=== PATIENT | male | born 1975 | race Caucasian/White ===

== ENCOUNTER 2019-04-18 07:04 | Emergency (ER) | payer BC ==
[2019-04-18 07:20] VITALS: BP 170/100
--- NOTE | 2019-04-18 07:28 | UC ---
Respiratory Complaint HPI - HPI Summary HPI Summary: 43 yo with about a 4 week history of nasal congestion and sinus drainage. He has not had fever, does have some cough but no shortness of breath. Overall does not feel unwell, but is concerned that he is at risk of bronchitis. - History of Current Complaint Chief Complaint: UCRespiratory Stated Complaint: CONGESTION SINUS Time Seen by Provider: 04/18/19 07:20 Hx Obtained From: Patient Onset/Duration: Gradual Onset, Lasting Weeks Timing: Intermittent Episodes Severity Initially: Mild Severity Currently: Mild Pain Intensity: 0 Character: Cough: Nonproductive Aggravating Factors: Recumbent Position Alleviating Factors: OTC Meds Associated Signs And Symptoms: Positive: Nasal Congestion - Risk Factors Pulmonary Embolism Risk Factors: Negative Cardiac Risk Factors: Hypertension - hx of borderline hypertension Pseudomonas Risk Factors: Negative Tuberculosis Risk Factors: Negative - Allergies/Home Medications Allergies/Adverse Reactions: Allergies Allergy/AdvReac Type Severity Reaction Status Date / Time No Known Allergies Allergy Verified 04/18/19 07:14 Home Medications: Home Medications Allopurinol TAB* [Zyloprim 100 MG TAB*] 400 mg PO DAILY 04/18/19 [History Confirmed 04/18/19] PMH/Surg Hx/FS Hx/Imm Hx - Additional Past Medical History Additional PMH: Gout Previously Healthy: Yes Cardiovascular History: Hypertension - borderline - Surgical History Surgical History: Yes Surgery Procedure, Year, and Place: RIGHT HAND TENDON REPAIR 1996; - Family History Known Family History: Positive: Hypertension - father - Social History Occupation: Employed Full-time Lives: Alone Alcohol Use: Weekly Alcohol Amount: few days a week Substance Use Type: Marijuana Substance Use Comment - Amount & Last Used: occasionally Smoking Status (MU): Heavy Every Day Tobacco Smoker Type: Cigarettes Amount Used/How Often: 1 ppd Review of Systems All Other Systems Reviewed And Are Negative: Yes Constitutional: Positive: Negative Skin: Positive: Negative Eyes: Positive: Negative ENT: Positive: Nasal Discharge, Sinus Congestion Respiratory: Positive: Cough. Negative: Shortness Of Breath Cardiovascular: Positive: Negative. Negative: Palpitations, Chest Pain Gastrointestinal: Positive: Negative Genitourinary: Positive: Negative Motor: Positive: Negative Neurovascular: Positive: Negative Musculoskeletal: Positive: Negative Neurological: Positive: Negative Psychological: Positive: Negative Is Patient Immunocompromised?: No Physical Exam Triage Information Reviewed: Yes Appearance: Well-Appearing, No Pain Distress, Obese Vital Signs: Initial Vital Signs Temp 97.0 F 04/18/19 07:10 Pulse 74 04/18/19 07:10 Resp 16 04/18/19 07:10 BP 170/100 04/18/19 07:10 Pulse Ox 100 04/18/19 07:10 ENT: Positive: Pharynx normal, TMs normal Respiratory: Positive: Lungs clear, Normal breath sounds Cardiovascular: Positive: RRR, No Murmur Musculoskeletal Exam: Normal Neurological Exam: Normal Psychological Exam: Normal Skin Exam: Normal Respiratory Course/Dx - Course Course Of Treatment: Symptomatic treatment of viral illness. - Differential Dx/Diagnosis Differential Diagnosis/HQI/PQRI: Asthma, Laryngitis, Sinusitis, Other - URI Provider Diagnosis: URI, acute Discharge ED - Sign-Out/Discharge Documenting (check all that apply): Patient Departure All imaging exams completed and their final reports reviewed: No Studies - Discharge Plan Condition: Stable Disposition: HOME Patient Education Materials: Upper Respiratory Infection (ED) Referrals: No Primary Care Phys,NOPCP [Primary Care Provider] - Additional Instructions: Your blood pressure today is elevated at 170/100; please ensure that you have a re-check of your blood pressure within 2 weeks. Your symptoms are consistent with a viral illness and as such is not likely to improve with use of an antibiotic. To relieve sinus congestion, you can use saline spray. Over the counter Flonase is also helpful in helping to decrease drainage. - Billing Disposition and Condition Condition: STABLE Disposition: Home
== END 2019-04-18 07:39 | disposition home or self-care (01) ==
LOC: UCEAST 07:04
DX: J06.9 Acute upper respiratory infection, unspecified (principal); E66.9 Obesity, unspecified; M10.9 Gout, unspecified; R03.0 Elevated blood-pressure reading, without diagnosis of hypertension; F17.210 Nicotine dependence, cigarettes, uncomplicated; Z82.49 Family history of ischemic heart disease and other diseases of the circulatory system; Z79.899 Other long term (current) drug therapy
CPT/HCPCS: 99211; G0463

== ENCOUNTER 2021-09-16 07:14 | Inpatient (IN) ==
[2021-09-16] MEDS ORDERED: Diltiazem IV push/loading dose 5 MG/ML 5 ML vial (25 mg) IV SLOW PU ONE ×2 (07:32→07:49)
[2021-09-16] MEDS ORDERED: Magnesium Sulfate 2 gm BAG 2 GM/50 ML BAG IVPB ONE (07:32)
[2021-09-16] MEDS ORDERED: Lactated Ringers 1000 ml BAG 1,000 ML IV ONE ×2 (07:33→09:55)
[2021-09-16] MEDS ORDERED: Diltiazem (ADVAN VIAL) 100 MG/100 ML ADDV.BAG IV ONE (07:39)
[2021-09-16 07:53] LABS: Hematocrit 39 % (42-52); Hemoglobin 13.1 g/dL (14.0-18.0); Mean Corpuscular HGB Conc 34 g/dL (31-36); Mean Corpuscular Hemoglobin 30 pg (27-31); Mean Corpuscular Volume 88 fL (80-94); Mean Platelet Volume 9.7 fL (7.4-10.4); Platelet Count 185 10^3/uL (150-450); Red Blood Count 4.44 10^6 /uL (4.18-5.48); Red Cell Distribution Width 15 % (10-15); White Blood Count 8.1 10^3/uL (3.5-10.8)
[2021-09-16] MEDS: Diltiazem (ADVAN VIAL) 100 MG/100 ML ADDV.BAG IV SCH ×2 (08:00→14:36)
[2021-09-16 08:03] LABS: INR 1.45 (0.86-1.15)
[2021-09-16] MEDS ORDERED: Digoxin IV 0.5 MG/2 ML AMP (0.25 MG/ML) IV SLOW PU ONE (08:06)
[2021-09-16 08:25] LABS: Albumin 3.2 g/dL (3.2-5.2); Albumin/Globulin Ratio 1.2 (1-3); Calcium 8.2 mg/dL (8.6-10.3); Globulin 2.6 g/dL (2-4); Magnesium 1.9 mg/dL (1.9-2.7); Potassium 3.7 mmol/L (3.5-5.0); Total Bilirubin 2.2 mg/dL (0.2-1.0); Total Protein 5.8 g/dL (6.4-8.9); eGFR CKD-EPI 77.5 (>60)
[2021-09-16 08:29] LABS: ABS Lymphocytes 0.4 10^3/ul (1.0-4.8); ABS Monocytes 0.1 10^3/ul (0-0.8); ABS Neutrophils 7.5 10^3/ul (1.5-7.7); Eosinophil % 0.6 %; RBC Morphology Normal (Normal)
[2021-09-16] MEDS ORDERED: Azithromycin 500 mg/250 ml NS 500 MG/250 ML BAG IVPB ONE (08:37)
[2021-09-16] MEDS ORDERED: cefTRIAXone 2 gm/50 mL D5W 2 GM/50 ML BAG IV ONE (08:37)
[2021-09-16] MEDS ORDERED: Iohexol 350 (CONTRAST) 500 ML MDV IV ONE (08:57)
[2021-09-16 10:21] LABS: High Sensitivity Troponin 1 Hr 15 pg/mL (<20)
[2021-09-16 11:39] LABS: C Reactive Protein 404.92 mg/L (<8.01)
[2021-09-16] MEDS ORDERED: Amiodarone 150 mg IVPREMIX 150 MG/100 ML BAG IV ONE (15:10)
[2021-09-16] MEDS ORDERED: .Amiodarone 24HR ONLY IV Protocol Order Note IV ONE (15:10)
[2021-09-16] MEDS ORDERED: Amiodarone 360 MG IVPREMIX 360 MG/200 ML BAG IV SCH (15:30)
[2021-09-16 18:42] LABS: ABS Lymphocytes 0.7 10^3/ul (1.0-4.8); ABS Monocytes 0.1 10^3/ul (0-0.8); ABS Neutrophils 6.5 10^3/ul (1.5-7.7); Eosinophil % 0.5 %; Hematocrit 35 % (42-52); Hemoglobin 11.6 g/dL (14.0-18.0); Lymphocyte % 9.1 %; Mean Corpuscular HGB Conc 33 g/dL (31-36); Mean Corpuscular Hemoglobin 29 pg (27-31); Mean Corpuscular Volume 89 fL (80-94); Mean Platelet Volume 9.4 fL (7.4-10.4); Platelet Count 170 10^3/uL (150-450); Red Blood Count 3.97 10^6 /uL (4.18-5.48); Red Cell Distribution Width 15 % (10-15); White Blood Count 7.4 10^3/uL (3.5-10.8)
[2021-09-16 19:19] LABS: Calcium 7.6 mg/dL (8.6-10.3); Magnesium 2.4 mg/dL (1.9-2.7); Phosphorus 1.8 mg/dL (2.5-5.0); Potassium 3.5 mmol/L (3.5-5.0); eGFR CKD-EPI 107.3 (>60)
[2021-09-16] MEDS: Amiodarone 360 MG IVPREMIX 360 MG/200 ML BAG IV SCH (21:29)
[2021-09-17 06:09] LABS: Urine Appearance Cloudy; Urine Bilirubin Negative (Negative); Urine Blood Negative (Negative); Urine Color Yellow; Urine Glucose Negative (Negative); Urine Ketones Negative (Negative); Urine Nitrite Negative (Negative); Urine Protein 2+(100 mg/dL) (Negative); Urine Specific Gravity 1.021 (1.002-1.030); Urine Urobilinogen Positive (Negative)
[2021-09-17 06:18] LABS: Urine Bacteria Absent (Absent); Urine Red Blood Cell 2+(6-10/hpf) (Absent); Urine White Blood Cell Trace(0-5/hpf) (Absent)
[2021-09-17 06:35] LABS: Blood Urea Nitrogen 18 mg/dL (6-24); CO2 Carbon Dioxide 23 mmol/L (22-32); Calcium 7.8 mg/dL (8.6-10.3); Chloride 105 mmol/L (101-111); Glucose 101 mg/dL (70-100); Magnesium 2.3 mg/dL (1.9-2.7); Sodium 134 mmol/L (135-145); eGFR CKD-EPI 114.3 (>60)
[2021-09-17 06:39] LABS: Anion Gap 6 mmol/L (2-11)
[2021-09-17 06:45] LABS: Hematocrit 37 % (42-52); Hemoglobin 12.2 g/dL (14.0-18.0); Mean Corpuscular HGB Conc 33 g/dL (31-36); Mean Corpuscular Hemoglobin 29 pg (27-31); Mean Corpuscular Volume 88 fL (80-94); Mean Platelet Volume 9.7 fL (7.4-10.4); Platelet Count 174 10^3/uL (150-450); Red Blood Count 4.19 10^6 /uL (4.18-5.48); Red Cell Distribution Width 15 % (10-15); White Blood Count 9.2 10^3/uL (3.5-10.8)
[2021-09-17 07:12] LABS: ABS Lymphocytes 0.8 10^3/ul (1.0-4.8); ABS Neutrophils 8.3 10^3/ul (1.5-7.7); Eosinophil % 0.2 %; Lymphocyte % 8.9 %
[2021-09-17] MEDS: KCL 20 MEQ/100 ML IVPREMIX 20 MEQ/100 ML BAG IV SCH ×2 (09:03→11:38)
[2021-09-17 09:58] LABS: TSH Ultra Thyroid Stim Horm 0.98 mcIU/mL (0.34-5.60)
[2021-09-17 09:59] LABS: Free T4 1.28 ng/dL (0.61-1.12)
[2021-09-17] MEDS: cefTRIAXone 1 gm/50 mL D5W 1 GM/50 ML BAG IV SCH (10:43)
[2021-09-17] MEDS: Amiodarone 360 MG IVPREMIX 360 MG/200 ML BAG IV SCH ×2 (10:51→16:06)
[2021-09-17] MEDS ORDERED: Azithromycin 500 mg/250 ml NS 500 MG/250 ML BAG IVPB SCH (11:00)
[2021-09-17] MEDS ORDERED: Flumazenil 0.5 mg/5 ml 0.1 MG/ML 5 ml VIAL ONE (14:41)
[2021-09-17] MEDS ORDERED: Naloxone 0.4 mg VIAL 0.4 mg/ml 1 ml VIAL ONE (14:41)
[2021-09-17] MEDS ORDERED: fentaNYL 100 mcg/2 ml 50 MCG/ML VIAL ONE (14:41)
[2021-09-17] MEDS ORDERED: Midazolam 5 mg/5 ml VIAL 1 mg/ml 5 ml VIAL (5 mg) ONE ×2 (14:41→15:39)
[2021-09-17] MEDS ORDERED: Ondansetron 4 mg VIAL 2 MG/ML 2 ml VIAL IV ONE (15:53)
[2021-09-17] MEDS ORDERED: Ondansetron 4 mg VIAL 2 MG/ML 2 ml VIAL ONE (15:54)
[2021-09-18] MEDS: Amiodarone 360 MG IVPREMIX 360 MG/200 ML BAG IV SCH (03:27)
[2021-09-18 05:25] LABS: Hematocrit 36 % (42-52); Hemoglobin 11.9 g/dL (14.0-18.0); Mean Corpuscular HGB Conc 33 g/dL (31-36); Mean Corpuscular Hemoglobin 29 pg (27-31); Mean Corpuscular Volume 88 fL (80-94); Mean Platelet Volume 9.4 fL (7.4-10.4); Platelet Count 209 10^3/uL (150-450); Red Blood Count 4.09 10^6 /uL (4.18-5.48); Red Cell Distribution Width 15 % (10-15); White Blood Count 12.4 10^3/uL (3.5-10.8)
[2021-09-18 05:32] LABS: ABS Eosinophils 0.1 10^3/ul (0-0.6); ABS Lymphocytes 1.3 10^3/ul (1.0-4.8); ABS Monocytes 0.6 10^3/ul (0-0.8); ABS Neutrophils 10.4 10^3/ul (1.5-7.7); Eosinophil % 0.6 %; Lymphocyte % 10.5 %
[2021-09-18 05:55] LABS: Albumin 2.4 g/dL (3.2-5.2); Calcium 7.7 mg/dL (8.6-10.3); Globulin 2.4 g/dL (2-4); Potassium 3.6 mmol/L (3.5-5.0); Total Bilirubin 0.7 mg/dL (0.2-1.0); Total Protein 4.8 g/dL (6.4-8.9); eGFR CKD-EPI 111.2 (>60)
[2021-09-18] MEDS: cefTRIAXone 1 gm/50 mL D5W 1 GM/50 ML BAG IV SCH (08:30)
[2021-09-18] MEDS ORDERED: cefTRIAXone 2 gm/50 mL D5W 2 GM/50 ML BAG IV SCH (09:00)
[2021-09-18] MEDS ORDERED: Potassium Chlor 20 meq TAB.ER PO ONE (09:01)
[2021-09-18] MEDS: guaiFENesin/CODIENE 100mg/10mg 5 ML UDC PO PRN ×2 (09:03→20:26)
[2021-09-18 09:12] LABS: C Reactive Protein 271.75 mg/L (<8.01)
[2021-09-18] MEDS ORDERED: cefTRIAXone 1 gm/50 mL D5W 1 GM/50 ML BAG IV ONE ×2 (10:33→11:30)
[2021-09-18] MEDS: Amiodarone 400 mg TAB PO SCH (20:20)
[2021-09-19] MEDS: guaiFENesin/CODIENE 100mg/10mg 5 ML UDC PO PRN ×3 (03:08→20:37)
[2021-09-19 07:59] LABS: Hematocrit 37 % (42-52); Hemoglobin 12.1 g/dL (14.0-18.0); Mean Corpuscular HGB Conc 32 g/dL (31-36); Mean Corpuscular Hemoglobin 29 pg (27-31); Mean Corpuscular Volume 89 fL (80-94); Mean Platelet Volume 9.7 fL (7.4-10.4); Platelet Count 292 10^3/uL (150-450); Red Blood Count 4.19 10^6 /uL (4.18-5.48); Red Cell Distribution Width 15 % (10-15); White Blood Count 13.7 10^3/uL (3.5-10.8)
[2021-09-19 08:11] LABS: Calcium 8.2 mg/dL (8.6-10.3); Magnesium 2.4 mg/dL (1.9-2.7); Potassium 4.3 mmol/L (3.5-5.0); eGFR CKD-EPI 111.2 (>60)
[2021-09-19 08:45] LABS: ABS Basophils 0.1 10^3/ul (0-0.2); ABS Lymphocytes 1.6 10^3/ul (1.0-4.8); ABS Monocytes 1.2 10^3/ul (0-0.8); ABS Neutrophils 10.8 10^3/ul (1.5-7.7); Eosinophil % 0.4 %; Lymphocyte % 11.8 %
[2021-09-19] MEDS: Amiodarone 400 mg TAB PO SCH ×2 (09:08→20:37)
[2021-09-19] MEDS: cefTRIAXone 2 gm/50 mL D5W 2 GM/50 ML BAG IV SCH (09:09)
[2021-09-19 13:22] LABS: Mycoplasma pneumoniae IgG Ab Positive (Negative); Mycoplasma pneumoniae IgM Ab Negative (Negative)
[2021-09-19 14:02] LABS: Albumin 2.5 g/dL (3.2-5.2); Direct Bilirubin 0.2 mg/dL (0.03-0.18); Globulin 2.4 g/dL (2-4); Indirect Bilirubin 0.3 mg/dL (0.3-1.0); Total Bilirubin 0.5 mg/dL (0.2-1.0); Total Protein 4.9 g/dL (6.4-8.9)
[2021-09-20 05:07] LABS: Hepatitis C Antibody Negative (Negative)
[2021-09-20 05:28] LABS: Hematocrit 36 % (42-52); Hemoglobin 11.8 g/dL (14.0-18.0); Mean Corpuscular HGB Conc 33 g/dL (31-36); Mean Corpuscular Hemoglobin 29 pg (27-31); Mean Corpuscular Volume 89 fL (80-94); Mean Platelet Volume 9.2 fL (7.4-10.4); Platelet Count 351 10^3/uL (150-450); Red Blood Count 4.04 10^6 /uL (4.18-5.48); Red Cell Distribution Width 15 % (10-15); White Blood Count 14.4 10^3/uL (3.5-10.8)
[2021-09-20 05:33] LABS: ABS Eosinophils 0.1 10^3/ul (0-0.6); ABS Lymphocytes 2.1 10^3/ul (1.0-4.8); ABS Monocytes 1.5 10^3/ul (0-0.8); ABS Neutrophils 10.7 10^3/ul (1.5-7.7); Eosinophil % 0.5 %; Lymphocyte % 14.4 %
[2021-09-20] MEDS: guaiFENesin/CODIENE 100mg/10mg 5 ML UDC PO PRN (05:41)
[2021-09-20 05:49] LABS: Albumin 2.5 g/dL (3.2-5.2); Calcium 8.1 mg/dL (8.6-10.3); Globulin 2.4 g/dL (2-4); Magnesium 2.3 mg/dL (1.9-2.7); Potassium 4.3 mmol/L (3.5-5.0); Total Bilirubin 0.6 mg/dL (0.2-1.0); Total Protein 4.9 g/dL (6.4-8.9); eGFR CKD-EPI 108.4 (>60)
[2021-09-20] MEDS: Amiodarone 400 mg TAB PO SCH (09:32)
[2021-09-20] MEDS: cefTRIAXone 2 gm/50 mL D5W 2 GM/50 ML BAG IV SCH (09:32)
[2021-09-20 13:15] LABS: Hepatitis A Ab IgM Negative (Negative); Hepatitis B Core IgM Nonreactive (Nonreactive)
[2021-09-20 13:27] LABS: Hepatitis C Antibody Negative (Negative)
[2021-09-20 19:06] LABS: Hepatitis B Surface Antigen Nonreactive (Nonreactive)
[2021-09-21 05:53] LABS: Albumin 2.6 g/dL (3.2-5.2); Direct Bilirubin 0.2 mg/dL (0.03-0.18); Globulin 2.5 g/dL (2-4); Indirect Bilirubin 0.3 mg/dL (0.3-1.0); Total Bilirubin 0.5 mg/dL (0.2-1.0); Total Protein 5.1 g/dL (6.4-8.9)
[2021-09-21] MEDS: cefTRIAXone 2 gm/50 mL D5W 2 GM/50 ML BAG IV SCH (08:43)
[2021-09-21 09:22] VITALS: BP 150/83
== END 2021-09-21 13:40 | disposition home or self-care (01) | DRG 139 ==
LOC: ED 07:14 → SUATTDRO 10:30 → EDHOLD 10:30 → ICU 13:05 → MEDTELE 09-18 19:49
PROVIDERS: ADMIT Internal Medicine; ATTEND Internal Medicine
PROC: CARDVER (ICD-10-PCS; 2021-09-17 12:50)